=== PATIENT | female | born 1975 | race Caucasian/White ===

== ENCOUNTER 2017-09-17 18:21 | Emergency (ER) | payer MEDICARE, OTHER ==
[~2017-09-17] VITALS: Ht 165.1 cm; Wt 86.2 kg
[2017-09-17] MEDS ORDERED: PHENAZOPYRIDIN200 M2 PO (18:38)
[2017-09-17 18:46] LABS: URINE BILIRUBIN NEGATIVE (Negative); URINE BLOOD NEGATIVE (Negative); URINE CLARITY CLEAR; URINE COLOR YELLOW; URINE GLUCOSE-RANDOM NEGATIVE (Negative); URINE KETONES TRACE (Negative); URINE LEUKOCYTES-REFLEX NEGATIVE (Negative); URINE NITRITE-REFLEX NEGATIVE (Negative); URINE PROTEIN NEGATIVE (Negative); URINE SPECIFIC GRAVITY >= 1.030 (1.005-1.030); URINE UROBILINOGEN 0.2 E.U./dl (0.2-1.0)
[2017-09-17 19:27] VITALS: BP 143/80
== END 2017-09-17 19:28 | disposition home or self-care (01) ==
LOC: M.ERS 18:21
PROVIDERS: Physician Assistant
DX: N89.8 Other specified noninflammatory disorders of vagina (principal); Z87.440 Personal history of urinary (tract) infections; Z88.8 Allergy status to other drugs, medicaments and biological substances